=== PATIENT | male | born 1965 | race Caucasian/White ===

== ENCOUNTER 2022-12-18 01:10 | Day surgery (SDC) | payer BC, SELFPAY ==
[2022-12-07 14:06] VITALS: BMI 23.9
[2022-12-18 08:24] VITALS: BP 98/76; PULSE 79; RESP 18; TEMP 36; O2SAT 99
[2022-12-18] MEDS: LACTATED RINGERS 1,000 ML 150 ML IV CONT (08:30)
--- NOTE | 2022-12-18 08:38 | PM.HPGS ---
History of Present Illness History of Present Illness Consent: Risks, benefits, and alternatives have been discussed and questions answered. Patient agrees to proceed with procedure. Chief complaint: neoplasm screening Narrative: Rajiv Sweet is a 57 year old male Presents for colonoscopy. Patient has a prior history of colon polyps in 2018. Adenomatous colon polyps were removed from the colon. Patient reports his current weight appetite bowel movements are normal. Family history is significant that his grandfather had colon cancer. Review of Systems Review of Systems: Review of systems noncontributory. [facility] Past Medical History Medical History (Updated 12/18/22 @ 08:40 by Zenon Barlow MD) Right hand pain Trigger finger, right 2nd digit Family History Family History (Updated 03/06/22 @ 09:21 by Teodora Hirsch) Grandparent Heart disease Father Diabetes mellitus Social History Social History (Updated 03/06/22 @ 09:22 by Teodora Hirsch) Smoking packs per day: 1 Smoking cigarettes per day: 20.0 Years smoked: 35 Smoking pack-years: 35.00 Smoking status: Current every day smoker Tobacco type: cigarettes Alcohol intake: current Drinks per week: 3 Substance use: never Living arrangements: with family Occupation/Education: occupation Gender identity (if verbalized by the patient): Male Spiritual care concerns: No Meds Home Medications and Allergies Home Medications Medication Instructions Recorded Confirmed Type No Home Medications 12/18/22 12/18/22 History Allergies Allergy/AdvReac Type Severity Reaction Status Date / Time No Known Allergies Allergy Unknown Unknown Verified 12/18/22 08:22 Vital Signs Vital Signs - 24 hr 12/18/22 08:24 Temperature 96.8 F L Pulse Rate 79 Respiratory Rate 18 Blood Pressure 98/76 L Pulse Oximetry 99 Oxygen Delivery Room Air Exam Narrative: Physical exam reveals patient to be alert. Vital signs stable. HEENT exam is unremarkable. Patient is anicteric. Lungs are clear to auscultation and percussion. Heart is without murmur or extra sounds. Abdomen bowel sounds are present soft nontender with no organomegaly. Digital external rectal exam normal. Assessment and Plan Assessment and plan (1) History of colon polyps: Code(s): Z86.010 - Personal history of colonic polyps Status: Acute Assessment and Plan: Patient has a prior history of colon polyps. Plan for surveillance colonoscopy at this time consider this at 5 year intervals in the future.
--- NOTE | 2022-12-18 09:20 | P.PNAN_ITS ---
Anes - Initial Pre Proc Eval Procedure: Operation Date: 12/18/22 09:30 Proposed Procedures p Screening Colonoscopy - Zenon Barlow MD Date/Time: 12/18/22 09:20 Surgeon: Zenon Barlow MD Pre Op Diagnosis: neoplasm screening Patient Data Age: 57 Gender: M Height: 1.83 m Weight: 74.6 kg Last Vital Signs Temp 96.8 F L 12/18/22 08:24 Pulse 79 12/18/22 08:24 Resp 18 12/18/22 08:24 BP 98/76 L 12/18/22 08:24 Pulse Ox 99 12/18/22 08:24 O2 Del Method Room Air 12/18/22 08:24 Allergies Allergy/AdvReac Type Severity Reaction Status Date / Time No Known Allergies Allergy Unknown Unknown Verified 12/18/22 08:22 Home Medications Medication Instructions Recorded Confirmed Type No Home Medications 12/18/22 12/18/22 History Patient hx anesthesia problems: none Family hx anesthesia problems: none Results Review: All pre-operative results and documents have been reviewed as part of the pre- operative evaluation. [facility] Past Medical History Medical History (Updated 12/18/22 @ 08:40 by Zenon Barlow MD) Right hand pain Trigger finger, right 2nd digit Family History Family History (Updated 03/06/22 @ 09:21 by Teodora Hirsch) Grandparent Heart disease Father Diabetes mellitus Social History Social History (Updated 03/06/22 @ 09:22 by Teodora Hirsch) Smoking packs per day: 1 Smoking cigarettes per day: 20.0 Years smoked: 35 Smoking pack-years: 35.00 Smoking status: Current every day smoker Tobacco type: cigarettes Alcohol intake: current Drinks per week: 3 Substance use: never Living arrangements: with family Occupation/Education: occupation Gender identity (if verbalized by the patient): Male Spiritual care concerns: No Anes - Eval Final PreProcedure Day of Procedure 12/18/22 09:20 Patient weight: normal Heart: regular rate and rhythm Lungs: clear to auscultation Airway: Mallampati scale class II Neurological: alert and oriented Last oral intake: >/= 8 hours ASA classification: II Emergent: no Anesthetic plan: proceed Anesthesia type and monitoring: general GIVS and standard monitoring Results Review: All pre-operative results and documents have been reviewed as part of the pre- operative evaluation. Informed Consent: The patient's anesthetic plan and its attendant risks and benefits were discussed with the patient/family/POA. Questions were solicited and answers provided to the satisfaction of the patient/family/POA.
[2022-12-18 09:46] VITALS: BP 97/72; PULSE 67; RESP 20; O2SAT 96
[2022-12-18 09:56] VITALS: BP 114/79; PULSE 65; RESP 18; O2SAT 99
[2022-12-18 10:06] VITALS: BP 120/81; PULSE 57; RESP 18; O2SAT 98
== END 2022-12-18 10:13 | disposition home or self-care (01) ==
PROVIDERS: PCP Family Medicine; Visit Provider Internal Medicine Gastroenterology
PROC: 0DJD8ZZ Inspection of Lower Intestinal Tract, Via Natural or Artificial Opening Endoscopic (ICD-10-PCS; CPT 45378; principal; 2022-12-18 09:30)
DX: Z12.11 Encounter for screening for malignant neoplasm of colon (principal); K64.8 Other hemorrhoids; Z86.010 Personal history of colon polyps; F17.210 Nicotine dependence, cigarettes, uncomplicated
CPT/HCPCS: 45378; J2704; J7120

== ENCOUNTER 2024-12-08 12:01 | Outpatient (CLI) | payer OTHER, SELFPAY ==
--- NOTE | ~2024-12-08 | US_ITS ---
Clinical History: Dizziness, family hx of heart dz Examination: US carotid duplex BI Comparison: None Technique: Grayscale, color, duplex/spectral Doppler sonography carotid and vertebral arteries. Distal CCA and Peak ICA systolic velocities provided. Society of Radiologists in Ultrasound (SRU) consensus criteria utilized, indirectly assessing stenosis by velocities. Findings: Mild plaque Right side: CCA - 93 cm/sec. ICA - 72 cm/sec. ICA/CCA - 0.8 Left Side: CCA - 86 cm/sec. ICA - 73 cm/sec. ICA/CCA - 0.8 Normal antegrade flow measured bilateral vertebral arteries. IMPRESSION: 1. No hemodynamically significant ICA stenosis (i.e., if any stenosis, less than 50%). 2. Normal bilateral antegrade vertebral artery flow. Stenosis measured by Society of Radiologists in Ultrasound (SRU) criteria. Reviewed, dictated and finalized at location R. IMPRESSION: 1. No hemodynamically significant ICA stenosis (i.e., if any stenosis, less th an 50%). 2. Normal bilateral antegrade vertebral artery flow. Stenosis measured by Society of Radiologists in Ultrasound (SRU) criteria.
== END 2024-12-08 12:02 | disposition home or self-care (01) ==
DX: R42 Dizziness and giddiness (principal); Z82.3 Family history of stroke; Z82.49 Family history of ischemic heart disease and other diseases of the circulatory system
CPT/HCPCS: 93880